=== PATIENT | female | born 1975 | race Caucasian/White ===

== ENCOUNTER 2016-08-28 18:58 | Emergency (ER) | payer BC ==
[2016-08-28] MEDS ORDERED: Lidocaine 2% VISCOUS* 15 ML UDC PO ONE (19:50)
[2016-08-28] MEDS ORDERED: Al Hydrox/Mg Hydrox/Simet LIQ* 30 ML UDC PO ONE (19:50)
[2016-08-28 20:15] LABS: Hematocrit 43 % (35-47); Hemoglobin 14.5 g/dl (12.0-16.0); Mean Corpuscular HGB Conc 34 g/dl (31-36); Mean Corpuscular Hemoglobin 32 pg (27-31); Mean Corpuscular Volume 94 fL (80-97); Mean Platelet Volume 8 um3 (7.4-10.4); Red Blood Count 4.55 10^6/ul (4.0-5.4); Red Cell Distribution Width 13 % (10.5-15); White Blood Count 10.8 10^3/ul (3.5-10.8)
[2016-08-28 20:24] LABS: ALT 10 U/L (7-52); AST 16 U/L (13-39); Alkaline Phosphatase 25 U/L (34-104); Anion Gap 8 mmol/L (2-11); BUN/Creatinine Ratio 7.5 (8-20); Blood Urea Nitrogen 4 mg/dL (6-24); C Reactive Protein < 1.00 mg/L (< 5.00); CO2 Carbon Dioxide 23 mmol/L (22-32); Calcium 8.8 mg/dL (8.6-10.3); Chloride 100 mmol/L (101-111); EGFR African American 164.3 (>60); EGFR Non-African American 127.8 (>60); Globulin 2.8 g/dL (2-4); Glucose 88 mg/dL (70-100); Lipase 10 U/L (11.0-82.0); Potassium 3.8 mmol/L (3.5-5.0); Sodium 131 mmol/L (133-145); Total Protein 6.8 g/dL (6.4-8.9)
[2016-08-28 20:40] LABS: Urine Bilirubin Negative (Negative); Urine Glucose Negative (Negative); Urine Nitrite Negative (Negative)
[2016-08-28] MEDS ORDERED: Sucralfate TAB* 1 GM PO ONE (20:42)
[2016-08-28 21:33] VITALS: BP 128/70
--- NOTE | 2016-08-28 22:25 | ED ---
Markell Iglesias Auryana, scribed for Shon Garza MD on 08/28/16 at 1955 . Abdominal Pain/Female - HPI Summary HPI Summary: 40 year old female presents to the ED for intermittent but chronic abdominal pain for the past few months worse since today. She states that her discomfort begins with pressure first at the end of the sternum and becoming more diffuse. The pressure ultimately becomes pain. She also notes abdominal bloating and vomiting associated with the pain (reports rare vomiting but increased frequency with current episode). The pain is alleviated by lying down and taking "goodys headache powders" - no relief today. She denies any exacerbating factors. PMHx is significant for hysterectomy. - History of Current Complaint Chief Complaint: EDAbdPain Stated Complaint: UPPER GASTRIC PAIN Time Seen by Provider: 08/28/16 19:29 ?: No Onset/Duration: Gradual Onset, Lasting Hours, Still Present, Worse Since - today Timing: Frequency Of Episodes - chronic Pain Intensity: 9 Pain Scale Used: 0-10 Numeric Location: Diffuse, Epigastric Character: Other: - pressure Aggravating Factor(s): Nothing Alleviating Factor(s): Position, Medications Associated Signs and Symptoms: Positive: Nausea, Vomiting - Risk Factors Ovarian Torsion Risk Factor: Hysterectomy Allergies/Adverse Reactions: Allergies Allergy/AdvReac Type Severity Reaction Status Date / Time No Known Allergies Allergy Verified 08/28/16 19:11 PMH/Surg Hx/FS Hx/Imm Hx - Surgical History Surgery Procedure, Year, and Place: hysterectomy Infectious Disease History: No Infectious Disease History: Denies: Traveled Outside the [place] in Last 30 Days - Family History Known Family History: Positive: Other - spleen removal - Social History Lives: With Family Alcohol Use: Daily Alcohol Amount: 6 beers a day Hx Substance Use: No Substance Use Type: Reports: None Hx Tobacco Use: Yes Smoking Status (MU): Heavy Every Day Tobacco Smoker Review of Systems Constitutional: Negative Eyes: Negative ENT: Negative Cardiovascular: Negative Respiratory: Negative Positive: Abdominal Pain, Vomiting Genitourinary: Negative Musculoskeletal: Negative Skin: Negative Neurological: Negative Psychological: Normal All Other Systems Reviewed And Are Negative: Yes Physical Exam Triage Information Reviewed: Yes Vital Signs On Initial Exam: Initial Vitals Temp Pulse Resp BP Pulse Ox 99.3 F 78 18 159/108 98 08/28/16 19:09 08/28/16 19:08/28/16 19:08/28/16 19:08/28/16 19:09 Vital Signs Reviewed: Yes Appearance: Positive: Well-Appearing, No Pain Distress, Well-Nourished Skin: Positive: Warm, Skin Color Reflects Adequate Perfusion, Dry Head/Face: Positive: Normal Head/Face Inspection Eyes: Positive: Normal ENT: Positive: Normal ENT inspection Neck: Positive: Supple, Nontender Respiratory/Lung Sounds: Positive: Clear to Auscultation, Breath Sounds Present Cardiovascular: Positive: RRR Abdomen Description: Positive: Soft, Other: - epigastrium tenderness Bowel Sounds: Positive: Present Musculoskeletal: Positive: Normal Neurological: Positive: Normal Psychiatric: Positive: Normal, Affect/Mood Appropriate - Alberto Coma Scale Coma Scale Total: 15 Diagnostics - Vital Signs Vital Signs Temp Pulse Resp BP Pulse Ox 08/28/16 19:23 99.3 F 66 20 148/90 98 08/28/16 19:09 99.3 F 78 18 159/108 98 - Laboratory Lab Results: Lab Results 08/28/16 08/28/16 08/28/16 Range/Units 20:01 20:01 20:01 WBC 10.8 (3.5-10.8) 10^3/ul RBC 4.55 (4.0-5.4) 10^6/ul Hgb 14.5 (12.0-16.0) g/dl Hct 43 (35-47) % MCV 94 (80-97) fL MCH 32 H (27-31) pg MCHC 34 (31-36) g/dl RDW 13 (10.5-15) % Plt Count 297 (150-450) 10^3/ul MPV 8 (7.4-10.4) um3 Neut % (Auto) 79.2 (38-83) % Lymph % (Auto) 13.9 L (25-47) % Ceiba % (Auto) 4.7 (1-9) % Eos % (Auto) 0.9 (0-6) % Baso % (Auto) 1.3 (0-2) % Absolute Neuts (auto) 8.5 H (1.5-7.7) 10^3/ul Absolute Lymphs (auto) 1.5 (1.0-4.8) 10^3/ul Absolute Monos (auto) 0.5 (0-0.8) 10^3/ul Absolute Eos (auto) 0.1 (0-0.6) 10^3/ul Absolute Basos (auto) 0.1 (0-0.2) 10^3/ul Absolute Nucleated RBC 0.01 10^3/ul Nucleated RBC % 0.1 Sodium 131 L (133-145) mmol/L Potassium 3.8 (3.5-5.0) mmol/L Chloride 100 L (101-111) mmol/L Carbon Dioxide 23 (22-32) mmol/L Anion Gap 8 (2-11) mmol/L BUN 4 L (6-24) mg/dL Creatinine 0.53 (0.51-0.95) mg/dL Est GFR ( Amer) 164.3 (>60) Est GFR (Non-Af Amer) 127.8 (>60) BUN/Creatinine Ratio 7.5 L (8-20) Glucose 88 (70-100) mg/dL Lactic Acid 0.9 (0.5-2.0) mmol/L Calcium 8.8 (8.6-10.3) mg/dL Total Bilirubin 0.40 (0.2-1.0) mg/dL AST 16 (13-39) U/L ALT 10 (7-52) U/L Alkaline Phosphatase 25 L (34-104) U/L C-Reactive Protein < 1.00 (< 5.00) mg/L Total Protein 6.8 (6.4-8.9) g/dL Albumin 4.0 (3.2-5.2) g/dL Globulin 2.8 (2-4) g/dL Albumin/Globulin Ratio 1.4 (1-3) Lipase 10 L (11.0-82.0) U/L Urine Color Urine Appearance Urine pH (5-9) Ur Specific Hope (1.010-1.030) Urine Protein (Negative) Urine Ketones (Negative) Urine Blood (Negative) Urine Nitrate (Negative) Urine Bilirubin (Negative) Urine Urobilinogen (Negative) Ur Leukocyte Esterase (Negative) Urine Glucose (Negative) 08/28/16 Range/Units 20:30 WBC (3.5-10.8) 10^3/ul RBC (4.0-5.4) 10^6/ul Hgb (12.0-16.0) g/dl Hct (35-47) % MCV (80-97) fL MCH (27-31) pg MCHC (31-36) g/dl RDW (10.5-15) % Plt Count (150-450) 10^3/ul MPV (7.4-10.4) um3 Neut % (Auto) (38-83) % Lymph % (Auto) (25-47) % Ceiba % (Auto) (1-9) % Eos % (Auto) (0-6) % Baso % (Auto) (0-2) % Absolute Neuts (auto) (1.5-7.7) 10^3/ul Absolute Lymphs (auto) (1.0-4.8) 10^3/ul Absolute Monos (auto) (0-0.8) 10^3/ul Absolute Eos (auto) (0-0.6) 10^3/ul Absolute Basos (auto) (0-0.2) 10^3/ul Absolute Nucleated RBC 10^3/ul Nucleated RBC % Sodium (133-145) mmol/L Potassium (3.5-5.0) mmol/L Chloride (101-111) mmol/L Carbon Dioxide (22-32) mmol/L Anion Gap (2-11) mmol/L BUN (6-24) mg/dL Creatinine (0.51-0.95) mg/dL Est GFR ( Amer) (>60) Est GFR (Non-Af Amer) (>60) BUN/Creatinine Ratio (8-20) Glucose (70-100) mg/dL Lactic Acid (0.5-2.0) mmol/L Calcium (8.6-10.3) mg/dL Total Bilirubin (0.2-1.0) mg/dL AST (13-39) U/L ALT (7-52) U/L Alkaline Phosphatase (34-104) U/L C-Reactive Protein (< 5.00) mg/L Total Protein (6.4-8.9) g/dL Albumin (3.2-5.2) g/dL Globulin (2-4) g/dL Albumin/Globulin Ratio (1-3) Lipase (11.0-82.0) U/L Urine Color Straw Urine Appearance Clear Urine pH 6.0 (5-9) Ur Specific Hope 1.004 L (1.010-1.030) Urine Protein Negative (Negative) Urine Ketones Trace H (Negative) Urine Blood Negative (Negative) Urine Nitrate Negative (Negative) Urine Bilirubin Negative (Negative) Urine Urobilinogen Negative (Negative) Ur Leukocyte Esterase Negative (Negative) Urine Glucose Negative (Negative) Result Diagrams: 08/28/16 20:01 08/28/16 20:01 Lab Statement: Any lab studies that have been ordered have been reviewed, and results considered in the medical decision making process. Abdominal Pain Fem Course/Dx - Course Course Of Treatment: Ms. Goldstein has had epigastric pain for a couple of months and has been taking a lot of Goody's Powders which is ASA, caffeine and acetaminophen. Her labs were OK here in the ED and she got significant relief with a GI cocktail. She is unable to take pills at baseline and I will give her carafate suspension, have her stop the Goody's and recommend close F/U. - Diagnoses Provider Diagnoses: Epigastric abdominal pain Discharge - Discharge Plan Condition: Stable Disposition: HOME Prescriptions: Sucralfate SUSP (NF) [Carafate SUSP (NF)] 1 gm PO Q6H #120 ml Patient Education Materials: Epigastric Pain (ED) Referrals: Non Staff,Doctor [Primary Care Provider] - 2 Days The documentation as recorded by the Markell guevara Auryana accurately reflects the service I personally performed and the decisions made by me, Shon Garza MD.
== END 2016-08-28 21:44 | disposition home or self-care (01) ==
LOC: ED 18:58
DX: R10.13 Epigastric pain (principal); R11.10 Vomiting, unspecified; F17.210 Nicotine dependence, cigarettes, uncomplicated
CPT/HCPCS: 36415; 80053; 81003; 83605; 83690; 85025; 86140; 99283; A9270-GY